=== PATIENT | male | born 2000 | race Caucasian/White ===

== ENCOUNTER → 2022-10-12 | Outpatient (CLI) | payer BC | LOC: M WUC 11:08 | PROVIDERS: ATTEND Nurse Practitioner Family | DX: S62.646A Nondisplaced fracture of proximal phalanx of right little finger, initial encounter for closed fracture (principal); M79.641 Pain in right hand; X58.XXXA Exposure to other specified factors, initial encounter; Y92.9 Unspecified place or not applicable ==